=== PATIENT | female | born 2005 | race Caucasian/White ===

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

== ENCOUNTER 2023-07-06 19:10 | Emergency (ER) | payer SELFPAY ==
[2023-07-06] MEDS ORDERED: Lidocaine 1% PF 2 ML SDV INJECT ONE (19:23)
[2023-07-06] MEDS ORDERED: Diphtheria,Pertussis(Acell),Tetanus Vaccine 0.5 ML Syringe IM ONE (19:23)
[2023-07-06 20:01] VITALS: BP 106/52; PULSE 60
== END 2023-07-06 20:00 | disposition home or self-care (01) ==
LOC: MW.ED 19:10
DX: S61.412A Laceration without foreign body of left hand, initial encounter (principal); Z88.0 Allergy status to penicillin; W26.8XXA Contact with other sharp object(s), not elsewhere classified, initial encounter
CPT/HCPCS: 12001; 99282; J3490